=== PATIENT | male | born 1970 | race Two or more races ===

== ENCOUNTER 2017-06-16 19:05 | Emergency (ER) | payer MEDICAID ==
[~2017-06-16] VITALS: Ht 165.1 cm; Wt 71.8 kg
[~2017-06-16 19:05] MED LIST: ACET500C5 PO; AZIT250T94 PO; FLUT16SP17 NASAL; IBUP800T25 PO
[2017-06-16 19:30] VITALS: Ht 165.1 cm; Wt 71.8 kg
--- NOTE | 2017-06-16 21:05 | ERD ---
ER Documentation Chief Complaint Chief Complaint right lower leg x 1 week. denies injury HPI right lateral calf pain, denies injury seen at [facility] for the same problem, she reports pain with ambulating, pain is described as a cramp, denies alcohol, ROS All systems reviewed and are negative except as per history of present illness. Medications Home Meds Active Scripts Fluticasone Propionate* (Fluticasone Propionate* Nasal) 50 Mcg/[place] - 16 Gm [place].susp, 1 SPRAY NASAL BID, #1 BOTTLE TO EACH NOSTRIL Prov:RISSA LAWRENCE PA-C 04/15/16 Acetaminophen* (Tylophen*) 500 Mg Capsule, 2 CAP PO Q8H Y for PAIN AND OR ELEVATED TEMP, #30 CAP Prov:RISSA LAWRENCE PA-C 04/15/16 Ibuprofen* (Motrin*) 800 Mg Tab, 800 MG PO Q6, #30 TAB Prov:RISSA LAWRENCE PA-C 04/15/16 Azithromycin* (Zithromax*) 250 Mg Tablet, 250 MG PO .ZPACK DIRECTED, #6 TAB TAKE 500 MG (2 TABS) THE FIRST DAY THEN 250 MG (1 TAB) DAYS 2-5 Prov:RISSA LAWRENCE PA-C 04/15/16 Allergies Allergies: Coded Allergies: No Known Drug Allergies (Verified Allergy, Mild, 10/20/10) PMhx/Soc History of Surgery: No Anesthesia Reaction: No Hx Neurological Disorder: No Hx Respiratory Disorders: No Hx Cardiac Disorders: No Hx Psychiatric Problems: No Hx Miscellaneous Medical Probl: No Hx Alcohol Use: Yes Hx Substance Use: No Hx Tobacco Use: No Physical Exam Vitals Vital Signs Date Time Temp Pulse Resp B/P Pulse Ox O2 Delivery O2 Flow Rate FiO2 06/16/17 19:30 98.6 73 20 131/69 97 Vitals stable, triage notes reviewed Physical Exam Const: Well-nourished well-hydrated well-appearing 46-year-old male patient no acute distress Resp: Aspirations even and unlabored, no respiratory distress Cardio: Back: No midline or flank tenderness Lower Extremity -right lateral calf: Skin: Skin intact, no erythema, ecchymosis, no laceration bruising or lesion Compartments: Soft negative Homans sign Motor: Full active range of motion hip/knee/ankle/foot Sensation: Intact to light touch FDWS/MF/LF/P surfaces. Bones: Nontender pelvis/knee/proximal tibia/ malleoli/foot Joints: No effusion or laxity Pulses/Perfusion: 2+ DP, Capillary refill < 2 seconds Neur: Awake and alert Psych: Normal Mood and Affect Results 24 hrs Current Medications Medications (Trade) Dose Ordered Sig/Dwaine Route PRN Reason Start Time Stop Time Status Last Admin Dose Admin Ibuprofen (Motrin) 600 mg ONCE ONCE PO 06/16/17 21:30 06/16/17 21:31 DC 06/16/17 21:43 Procedures/MDM PROCEDURE: US venous right lower extremity CLINICAL INDICATION: Right lower extremity pain. TECHNIQUE: Multiple longitudinal and transverse images of the right lower extremity veins were obtained with roberson scale and color Doppler imaging. The calf veins were interrogated as well. COMPARISON: None available. FINDINGS: Common femoral vein: Normal flow. Compressible and augmentable. Proximal superficial femoral vein: Normal flow. Compressible and augmentable. Mid superficial femoral vein: Normal flow. Compressible and augmentable. Distal superficial femoral vein: Normal flow. Compressible and augmentable. Popliteal vein: Normal flow. Compressible and augmentable. Calf veins: Normal flow. IMPRESSION: 1. No evidence of a deep vein thrombosis within the right lower extremity. Electronically viewed and signed by .Car Sebastian MD, on 06/16/2017 22:50 This 46-year-old male patient presents to emergency department with his 3-year- old daughter who is also being seen for unrelated symptoms. Patient reports right lateral calf pain, patient has no history of injury or causative factor, reports pain is been constant for over 10 days, states he was seen at [facility], reports that he was discharged home with unknown diagnosis. Patient has not used any medication for pain, he works as a painter hand, has heavy walking boots on , emergency room course includes history and physical exam, skin is intact, there is no evidence of cellulitis or infection. Plan to treat with ibuprofen, venous Doppler to rule out DVT/radiology findings documents no evidence of a deep vein thrombosis within the right lower extremity. Patient will be placed in an Ramana wrap, instructed to keep supported, diagnosed with a tendinitis, prescribed ibuprofen, instructed to follow-up with primary care physician if symptoms fail to improve as anticipated in the next 7-10 days. Patient is stable with no new complaints during ER course, clinically there is no current evidence to suggest deep vein thrombosis, superficial thrombosis, thrombophlebitis, cellulitis, abscess, boil, furuncle, folliculitis or any other emergent condition appearing to require further evaluation or hospitalization. I feel the patient is stable for discharge at this time. I have discussed results, examination findings, the treatment plan with the patient and family present prior to discharge. Indications for emergent reevaluation, side effects of medication were also discussed. All questions were answered. Patient verbalizes understanding and agrees with plan of care. Departure Diagnosis: Primary Impression: Tendonitis Condition: Good Patient Instructions: Tendonitis Additional Instructions: Thank you for for coming to [facility] for your care today. Please ask your nurse or provider if you have questions about your care today and do not leave until all your questions have been answered. Please use any medications given as directed and follow-up with your doctor (or the doctor you were referred to) in the next 2-3 days. If you do not have a primary care doctor [place] [facility] [place] You may also use motrin and tylenol as needed for fever and/or pain unless instructed otherwise by your provider or nurse. Indications for more urgent follow-up have been discussed, but you may return to the Emergency Department at ANY time for any worrisome or worsening symptoms. If you have abdominal pain, please know that no test or exam you received is perfect and you should follow up within 8 hours for continued pain. If you had any imaging studies today, such as an X-Ray or CT Scan, these studies will be reviewed later by a radiologist. You will be called if there are important findings that were not identified today, so make sure the contact information you provided at registration is correct. If you received any narcotic pain control medicine today, such as Vicodin, Morphine or Dilaudid, your coordination and judgment may be affected for a number of hours. Please do not drive or operate heavy machinery, and you may want someone to assist you at home. If you were given a prescription for narcotic medication, be aware that it is very addictive- use sparingly and only if necessary. RITO GOMEZ Jun 16, 2017 21:05
[2017-06-16] MEDS ORDERED: IBUPROFEN 600 MG TAB PO ONE (21:30)
--- NOTE | 2017-06-16 22:51 | RADRPT ---
PROCEDURE: US venous right lower extremity CLINICAL INDICATION: Right lower extremity pain. TECHNIQUE: Multiple longitudinal and transverse images of the right lower extremity veins were obta ined with roberson scale and color Doppler imaging. The calf veins were interrogated as well. COMPARISON: None available. FINDINGS: Common femoral vein: Normal flow. Compressible and augmentable. Proximal superficial femoral vein: Normal flow. Compressible and augmentable. Mid superficial femoral vein: Normal flow. Compressible and augmentable. Distal superficial femoral vein: Normal flow. Compressible and augmentable. Popliteal vein: Normal flow. Compressible and augmentable. Calf veins: Normal flow. IMPRESSION: 1. No evidence of a deep vein thrombosis within the right lower extremity. RPTAT: HLBP .Car Sebasitan MD, MD Date Time Electronically viewed and signed by .Car Sebastian MD, MD on 06/16/2017 22:50 .P/
[2017-06-16] MEDS ORDERED: IBUP-1542 PO (23:19)
[2017-06-16 23:38] VITALS: BP 116/78; PULSE 71; RESP 20; TEMP 97.4
== END 2017-06-16 23:39 | disposition home or self-care (01) ==
LOC: FTE 19:05
DX: M77.9 Enthesopathy, unspecified (principal)
CPT/HCPCS: 93971; Z7502; Z7610

== ENCOUNTER 2019-02-22 21:45 | Emergency (ER) | payer MEDICAID ==
[~2019-02-22] VITALS: Ht 154.9 cm; Wt 73.2 kg
[~2019-02-22 21:45] MED LIST changes: +AZIT250T PO; -AZIT250T94 PO; +IBUP-1542 PO; -IBUP800T25 PO; +IBUP800T48 PO; +TRAM50TA2 PO
[2019-02-22 21:53] VITALS: BP 122/74; PULSE 70; RESP 19; Ht 154.9 cm; Wt 73.2 kg
[2019-02-22] MEDS ORDERED: HYDROCODONE/APAP (10/325) TAB PO ONE (23:30)
== END 2019-02-22 23:35 | disposition home or self-care (01) ==
LOC: FTE 21:45
DX: M72.2 Plantar fascial fibromatosis (principal)
CPT/HCPCS: Z7502; Z7610; 99283